=== PATIENT | female | born 1980 | race Caucasian/White ===

== ENCOUNTER 2017-04-03 01:03 | Emergency (ER) | payer OTHER ==
[~2017-04-03] VITALS: Ht 165.1 cm; Wt 58.5 kg
[2017-04-03 01:05] VITALS: BP_SYST 113
[2017-04-03 01:37] LABS: BILIRUBIN,URINE NEGATIVE (NEGATIVE); BLOOD, URINE 3+ (NEGATIVE); CLARITY/URINE CLOUDY (CLEAR); COLOR,URINE RED (YELLOW); GLUCOSE,URINE NEGATIVE (NEGATIVE); KETONES,URINE 1+ (NEGATIVE); LEUKOCYTE ESTERASE ,URINE 3+ (NEGATIVE); NITRITE, URINE NEGATIVE (NEGATIVE); PROTEIN URINE 1+ (NEGATIVE); UROBILINOGEN,URINE 0.2 (0.2-1.0)
[2017-04-03 01:51] LABS: BACTERIA,URINE MODERATE /HPF (None Seen); MUCUS,URINE None Seen /LPF (None Seen); RBC,URINE >100 /HPF (0-3); WBC,URINE 50-80 /HPF (0-3)
[2017-04-03] MEDS ORDERED: PHENAZOPYRIDINE HCL 100 MG TABLET PO ONE (02:15)
[2017-04-03] MEDS ORDERED: KETOROLAC TROMETHAMINE 60 MG/2 ML VIAL IM ONE (02:15)
[2017-04-03] MEDS ORDERED: LEVOFLOXACIN 500 MG TABLET PO ONE (02:30)
[2017-04-03 02:40] VITALS: BP_SYST 113
== END 2017-04-03 02:40 | disposition home or self-care (01) ==
LOC: SED 01:03
DX: N30.90 Cystitis, unspecified without hematuria (principal)
CPT/HCPCS: 81000; 81025; 87086; 87186; 96372; 99284; J1885